=== PATIENT | male | born 2000 | race Caucasian/White ===

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

== ENCOUNTER 2023-08-01 03:01 | Emergency (ER) | payer BC, OTHER ==
[2023-08-01] MEDS ORDERED: Cephalexin 500 MG Cap PO ONE (03:31)
== END 2023-08-01 06:30 | disposition home or self-care (01) ==
LOC: MW.ED 03:01
DX: S02.42XA Fracture of alveolus of maxilla, initial encounter for closed fracture (principal); S06.0X0A Concussion without loss of consciousness, initial encounter; S01.511A Laceration without foreign body of lip, initial encounter; F10.129 Alcohol abuse with intoxication, unspecified; Y04.2XXA Assault by strike against or bumped into by another person, initial encounter
CPT/HCPCS: 70450; 70486; 72125; 99284; A9270

== ENCOUNTER 2024-03-17 02:53 | Emergency (ER) | payer BC ==
[2024-03-17 03:08] LABS: BASOPHILS ABSOLUTE AUTO 0.05 K/uL (0.00-0.20); BASOPHILS PERCENT AUTO 0.8 % (0.0-1.0); EOSINOPHILS ABSOLUTE AUTO 0.03 K/uL (0.00-0.45); EOSINOPHILS PERCENT AUTO 0.5 % (0.0-6.0); HEMOGLOBIN 15.9 g/dL (14.0-18.0); IMMATURE GRAN ABSOLUTE AUTO 0.02 K/uL (0.00-0.05); IMMATURE GRAN PERCENT AUTO 0.3 % (0.0-0.4); LYMPHOCYTES ABSOLUTE AUTO 1.83 K/uL (1.00-4.80); LYMPHOCYTES PERCENT AUTO 28.3 % (24.0-44.0); MEAN CORPUSCULAR HEMOGLOBIN 30.3 pg (28.0-32.0); MEAN CORPUSCULAR HGB CONC 34.6 g/dL (32.0-36.0); MEAN CORPUSCULAR VOLUME 87.6 fL (83.0-99.0); MEAN PLATELET VOLUME 8.6 fL (9.4-12.4); MONOCYTES ABSOLUTE AUTO 0.51 K/uL (0.00-0.80); MONOCYTES PERCENT AUTO 7.9 % (0.0-8.0); NEUTROPHILS ABSOLUTE AUTO 4.02 K/uL (1.80-7.70); NEUTROPHILS PERCENT AUTO 62.2 % (41.0-71.0); PLATELET COUNT,PLT 276 K/uL (150-400); RED BLOOD CELL COUNT 5.25 M/uL (4.52-5.90); WHITE BLOOD CELL COUNT,WBC 6.46 K/uL (3.9-11.3)
[2024-03-17 03:22] LABS: INR 1.17 (0.86-1.11)
[2024-03-17] MEDS: Sodium Chloride 0.9% 2.5 ML Syringe FLUSH PRN (03:30)
[2024-03-17] MEDS: Sodium Chloride 0.9% 10 ML Syringe FLUSH PRN (03:30)
[2024-03-17 03:34] LABS: A/G RATIO 1.5 (0.9-1.6); ALBUMIN 4.7 g/dL (3.4-5.0); BILIRUBIN TOTAL 0.6 mg/dL (0.2-1.0); CALCIUM 9.1 mg/dL (8.5-10.1); CARBON DIOXIDE,CO2 25.6 mmol/L (21.0-32.0); CREATININE 1.2 mg/dL (0.8-1.3); EST CRCL DRUG DOSING (CG) 92.19 mL/min; POTASSIUM,K 3.2 mmol/L (3.5-5.1); PROTEIN TOTAL,TP 7.8 g/dL (6.4-8.2)
[2024-03-17] MEDS: Iopamidol 755 MG/ML 500 ML Multipack Bottle IVPUSH ONE (03:49)
== END 2024-03-17 06:31 | disposition home or self-care (01) ==
LOC: MW.ED 02:53
DX: S06.0XAA Concussion with loss of consciousness status unknown, initial encounter (principal); M79.641 Pain in right hand; M79.642 Pain in left hand; E87.6 Hypokalemia; F17.210 Nicotine dependence, cigarettes, uncomplicated; M54.6 Pain in thoracic spine; Y90.6 Blood alcohol level of 120-199 mg/100 ml; V49.50XA Passenger injured in collision with unspecified motor vehicles in traffic accident, initial encounter; Y92.410 Unspecified street and highway as the place of occurrence of the external cause
CPT/HCPCS: 36415; 70450; 70486; 71260; 72125; 72128; 73120; 74177; 80053; 80307; 84484; 85025; 85610; 86850; 86900; 86901; 99284; J3490; Q9967